=== PATIENT | female | born 1985 | race Caucasian/White ===

== ENCOUNTER 2018-01-01 18:38 | Emergency (ER) | payer SELFPAY ==
[~2018-01-01] VITALS: Ht 160 cm; Wt 54.5 kg
[~2018-01-01 18:38] MED LIST: BACTRIM DS1 TAB OR; NO MEDS; VICODIN1 TAB OR
[2018-01-01 21:20] VITALS: BP 120/79
== END 2018-01-01 21:20 | disposition home or self-care (01) | DRG 563 ==
LOC: ED 18:38
DX: S93.401A Sprain of unspecified ligament of right ankle, initial encounter (principal); X50.1XXA Overexertion from prolonged static or awkward postures, initial encounter; Y93.9 Activity, unspecified; Y92.009 Unspecified place in unspecified non-institutional (private) residence as the place of occurrence of the external cause

== ENCOUNTER 2020-11-29 23:35 | Emergency (ER) | payer SELFPAY ==
[~2020-11-29] VITALS: Ht 160 cm; Wt 61.0 kg
[2020-11-30 01:10] LABS: HEMATOCRIT 39.1 % (37.0-47.0); HEMOGLOBIN 12.5 g/dl (12.0-16.0); IMMATURE GRANULOCYTES 0.2 % (0.0-5.0); MEAN CELL VOLUME 85.6 fL CALC (80.0-100.0); MEAN CORPUSCULAR HGB 27.4 pG CALC (26.0-32.0); NEUT# 4.13 thou/uL (2.00-7.15); RED BLOOD COUNT 4.57 mill/uL (4.20-5.60); RED CELL DISTRI WIDTH 12.8 % (11.5-15.5)
[2020-11-30 01:29] LABS: ALBUMIN 4.3 g/dL (3.2-5.0); ALKALINE PHOSPHATASE 45 u/l (38-126); ANION GAP 13 (6-22 (CALC)); BUN 6 mg/dL (7-17); BUN/CREATININE RATIO 9 (12-20 (CALC)); CARBON DIOXIDE 24 mmol/l (22-30); CHLORIDE 107 mmol/l (95-108); CREATININE 0.7 mg/dL (0.5-1.0); GFR > 60 ML/MIN (>=60 (CALC)); GFR FOR AFR.AMER. > 60 ML/MIN (>=60 (CALC)); POTASSIUM 3.7 mmol/l (3.5-5.1); SODIUM 140 mmol/l (137-146); TOTAL PROTEIN 7.3 g/dL (6.3-8.2)
[2020-11-30 01:38] LABS: BILIRUBIN, TOTAL 0.2 mg/dL (0.0-1.4); SGOT/AST 37 u/l (14-36)
[2020-11-30] MEDS ORDERED: ROBITUSSIN AC10 ML PO (02:43)
[2020-11-30] MEDS ORDERED: VENTOLIN HFA IN (02:44)
[2020-11-30 02:46] VITALS: BP 99/68
== END 2020-11-30 02:53 | disposition home or self-care (01) | DRG 179 ==
LOC: ED 23:35
PROVIDERS: Family Medicine
DX: U07.1 COVID-19 (principal)

== ENCOUNTER 2023-05-02 07:28 | Emergency (ER) | payer SELFPAY ==
[2023-05-02] VITALS (15 sets, daily range): BP systolic 103–121; BP diastolic 65–84
[~2023-05-02] VITALS: Ht 160 cm; Wt 61.2 kg
[~2023-05-02 07:28] MED LIST changes: +ROBITUSSIN AC10 ML PO; +VENTOLIN HFA IN
[2023-05-02] MEDS ORDERED: SODIUM CHLORIDE 0.9% 1,000 ML IV ONE (08:00)
[2023-05-02 09:33] LABS: BASO% 0.3 % (0-3); EOS% 1.2 % (0-8); HEMATOCRIT 42.2 % (37.0-47.0); HEMOGLOBIN 13.4 g/dl (12.0-16.0); IMMATURE GRANULOCYTES 0.3 % (0.0-5.0); LYMPH% 12.6 % (15-41); MEAN CELL VOLUME 87.6 fL CALC (80.0-100.0); MEAN CORPUSCULAR HGB 27.8 pG CALC (26.0-32.0); MEAN CORPUSCULAR HGB CONC 31.8 g/dL CAL (32.0-36.0); MONO% 8.1 % (2-13); NEUT# 5.35 thou/uL (2.00-7.15); NEUT% 77.5 % (42-76); RED BLOOD COUNT 4.82 mill/uL (4.20-5.60); RED CELL DISTRI WIDTH 12.6 % (11.5-15.5)
[2023-05-02 09:38] LABS: URINE BILIRUBIN - DIPSTICK Negative (NEGATIVE); URINE BLOOD DIPSTICK Negative (NEGATIVE); URINE GLUCOSE - DIPSTICK Negative (NEGATIVE); URINE KETONE Negative (NEGATIVE); URINE LEUK ESTERASE Trace (NEGATIVE); URINE NITRITE - DIPSTICK Negative (Negative); URINE PH 7.5 (4.5-8.0); URINE PROTEIN - DIPSTICK Negative (NEG-TRACE); URINE SPECIFIC GRAVITY 1.015; URINE UROBILINOGEN - DIPSTICK 0.2 E.U./dL (0.2)
[2023-05-02 09:42] LABS: URINE COLOR Yellow
[2023-05-02 10:03] LABS: ANION GAP 12 (6-22 (CALC)); BUN 8 mg/dL (7-17); BUN/CREATININE RATIO 11 (12-20 (CALC)); CARBON DIOXIDE 25 mmol/l (22-30); CHLORIDE 109 mmol/l (95-108); CREATININE 0.7 mg/dL (0.5-1.0); GFR FOR AFR.AMER. > 60 ML/MIN (>=60 (CALC)); GFR OTHER RACES > 60 ML/MIN (>=60 (CALC)); POTASSIUM 4.1 mmol/l (3.5-5.1); SODIUM 142 mmol/l (137-146)
== END 2023-05-02 12:27 | disposition home or self-care (01) | DRG 310 ==
LOC: ED 07:28
PROVIDERS: Emergency Medicine
DX: R00.2 Palpitations (principal); Z20.822 Contact with and (suspected) exposure to COVID-19

== ENCOUNTER 2023-12-23 09:00 | Emergency (ER) | payer OTHER ==
[2023-12-23] VITALS (22 sets, daily range): BP systolic 96–128; BP diastolic 66–82
[~2023-12-23] VITALS: Ht 160 cm; Wt 56.6 kg
[2023-12-23 10:26] LABS: BASO% 0.2 % (0-3); EOS% 1.9 % (0-8); HEMATOCRIT 39.2 % (37.0-47.0); HEMOGLOBIN 12.8 g/dl (12.0-16.0); IMMATURE GRANULOCYTES 0.4 % (0.0-5.0); LYMPH% 17.1 % (15-41); MEAN CELL VOLUME 86.9 fL CALC (80.0-100.0); MEAN CORPUSCULAR HGB 28.4 pG CALC (26.0-32.0); MEAN CORPUSCULAR HGB CONC 32.7 g/dL CAL (32.0-36.0); NEUT# 3.47 thou/uL (2.00-7.15); NEUT% 73.4 % (42-76); RED BLOOD COUNT 4.51 mill/uL (4.20-5.60); RED CELL DISTRI WIDTH 12.4 % (11.5-15.5)
[2023-12-23 10:39] LABS: URINE BILIRUBIN - DIPSTICK Negative (NEGATIVE); URINE BLOOD DIPSTICK Negative (NEGATIVE); URINE GLUCOSE - DIPSTICK Negative (NEGATIVE); URINE KETONE Negative (NEGATIVE); URINE LEUK ESTERASE Trace (NEGATIVE); URINE NITRITE - DIPSTICK Negative (Negative); URINE PROTEIN - DIPSTICK Negative (NEG-TRACE); URINE UROBILINOGEN - DIPSTICK 0.2 E.U./dL (0.2)
[2023-12-23 10:40] LABS: URINE COLOR Yellow
[2023-12-23 10:50] LABS: ALBUMIN 4.5 g/dL (3.2-5.0); ALKALINE PHOSPHATASE 32 u/l (38-126); ANION GAP 8 (6-22 (CALC)); BUN 7 mg/dL (7-17); BUN/CREATININE RATIO 9 (12-20 (CALC)); CARBON DIOXIDE 25 mmol/l (22-30); CHLORIDE 111 mmol/l (95-108); CREATININE 0.8 mg/dL (0.5-1.0); ESTIMATED GFR 98 ML/MIN (>=90 (CALC)); LIPASE 96 u/l (23-300); POTASSIUM 4.2 mmol/l (3.5-5.1); SGOT/AST 20 u/l (14-36); SODIUM 139 mmol/l (137-146); TOTAL PROTEIN 6.8 g/dL (6.3-8.2)
[2023-12-23 10:51] LABS: BILIRUBIN, TOTAL 0.6 mg/dL (0.02-1.3)
[2023-12-23] MEDS ORDERED: MORPHINE SULFATE 4 MG/ML VIAL IV ONE (11:30)
[2023-12-23] MEDS ORDERED: ONDANSETRON HCl 4 MG/2 ML SDV IV ONE (11:30)
[2023-12-23] MEDS ORDERED: IBUPROFEN600 MG PO (14:29)
== END 2023-12-23 14:40 | disposition home or self-care (01) | DRG 605 ==
LOC: ED 09:00
PROVIDERS: Family Medicine
DX: S10.93XA Contusion of unspecified part of neck, initial encounter (principal); S06.0X0A Concussion without loss of consciousness, initial encounter; R10.32 Left lower quadrant pain; V43.52XA Car driver injured in collision with other type car in traffic accident, initial encounter
CPT/HCPCS: Q9967